=== PATIENT | male | born 1945 | race Caucasian/White ===

== ENCOUNTER 2019-04-17 07:24 | Inpatient (IN) | payer MEDICARE, OTHER ==
[~2019-04-17] VITALS: Ht 167.6 cm; Wt 90.0 kg
--- NOTE | 2019-04-17 07:36 | NUR ---
PT WITH C/O R SIDED NUMBNESS, IN ARM, STRENGTH EQUAL IN BOTH SIDES. ARM DOES SEEM TO DROP WITH OUT PT MEANING IT TOO. PT STATES HE WAS FALLING TO THE RIGHT SIDE AND LEANING ON THE WALL TO HOLD HIMSELF UP. PT ALSO STATES THAT HE HAS HAD SOME MEMORY ISSUES, SO DETAILS ARE HARD TO OBTAIN. PT STATES SYMPTOMS BEGAN APPROX 0600 THIS AM
--- NOTE | 2019-04-17 07:45 | NUR ---
ERMD IN TO EVAL PT, CODE NEURO CALLED
--- NOTE | 2019-04-17 07:46 | NUR ---
FSBG 149. PT TO CT AT THIS TIME
[2019-04-17 07:59] LABS: BASOPHILS # (AUTO) 0.07 x10^3/uL (0-0.1); BASOPHILS % (AUTO) 1 % (0-1); EOSINOPHILS # (AUTO) 0.02 x10^3/uL (0-0.4); EOSINOPHILS % (AUTO) 0 % (1-7); LYMPHOCYTES # (AUTO) 1.32 x10^3/uL (1-3.4); LYMPHOCYTES % (AUTO) 13 % (22-44); MD NO; MEAN CORPUSCULAR HEMOGLOBIN 32.5 pg (27.5-34.5); MEAN CORPUSCULAR HGB CONC 33.8 g/dL (33.2-36.2); MEAN CORPUSCULAR VOLUME 96.2 fL (81-97); MEAN PLATELET VOLUME 7.2 fL (7.4-10.4); MONOCYTES # (AUTO) 0.67 x10^3/uL (0.2-0.8); MONOCYTES % (AUTO) 7 % (2-9); NEUTROPHILS # (AUTO) 8.07 x10^3/uL (1.8-6.8); NEUTROPHILS % (AUTO) 80 % (42-75); PLATELET COUNT 223 x10^3/uL (130-400); RED BLOOD COUNT 4.96 x10^6/uL (4.38-5.82); RED CELL DISTRIBUTION WIDTH 13.3 % (9.4-14.8)
--- NOTE | 2019-04-17 08:05 | NUR ---
DR MARTINI IN TO EVAL PT
[2019-04-17 08:11] LABS: INTERNATIONAL NORMALIZED RATIO 1.01 (0.93-1.1); PROTHROMBIN TIME 10.7 Seconds (9.6-11.5)
[2019-04-17 08:12] LABS: ALANINE AMINOTRANSFERASE 44 U/L (12-78); ALBUMIN 3.8 g/dL (3.4-5.0); ANION GAP 7 mmol/L (5-15); CALCIUM 8.9 mg/dL (8.5-10.1); CHLORIDE 107 mmol/L (98-107)
[2019-04-17 08:14] LABS: ALKALINE PHOSPHATASE 44 U/L (45-117); BILIRUBIN,TOTAL 0.6 mg/dL (0.2-1.0); TOTAL PROTEIN 7.4 g/dL (6.4-8.2)
--- NOTE | 2019-04-17 08:34 | NUR ---
FAMILY NOW PRESENT, AND DAUGHTER OF PT. PT STILL IN MRI. TPA ORDERED, DR MARTINI DISCUSSING WITH FAMILY AT THIS TIME
--- NOTE | 2019-04-17 08:38 | NUR ---
Geni howard in [facility] - 04/17/19 at 0839 by DOMINIC TASK RN: PT MOVED TO WEIGHTE
--- NOTE | 2019-04-17 08:38 | NUR ---
TASK RN: PT MOVED TO WEIGHTE
--- NOTE | 2019-04-17 08:39 | NUR ---
TASK RN: PT RETURN TO ROOM. PT MOVED TO WEIGHTED [facility], RE-WEIGHED ON BED SCALE.
--- NOTE | 2019-04-17 08:40 | NUR ---
BEDSIDE REPORT FROM CM LEDEZMA, ASSUMED CARE OF PT AT THIS TIME. [facility] STROKE SCALE 3.
[2019-04-17] MEDS ORDERED: LABETALOL 5MG/ML, 20ML ONE (08:45)
--- NOTE | 2019-04-17 08:56 | NUR ---
LATE ENTRY: TASK RN, PER NEUROLOGIST OBTAIN MRI. RN ACCOMPANIED RN TO MRI, NEUROLOGIST TO MRI TO REVIEW SCAN, PER MD GIVE TPA AT THIS TIME. PT RETURNED TO TRAUMA 3, CONSENT OBTAINED AND TPA BOLUS GIVEN @0851, TPA INFUSION BEGAN @0851. [facility] STROKE SCALE 3, SEE CHART AND FLOWSHEET. FAMILY AT BEDSIDE, PT AND FAMILY UPDATED BY .
[2019-04-17] MEDS ORDERED: ALTEPLASE IV ONE (09:00)
[2019-04-17] MEDS ORDERED: LABETALOL 5MG/ML, 20ML IVPush ONE (09:00)
[2019-04-17] MEDS ORDERED: ALTEPLASE 8 MG in SYRINGE 1 EA IVPush ONE (09:00)
[2019-04-17] MEDS ORDERED: ALTEPLASE 1 MG/ML, 100ML ONE (09:01)
[2019-04-17] MEDS ORDERED: OMNIPAQUE 350 MG/ML, 100ML BOTTLE ONE (09:23)
[2019-04-17] MEDS ORDERED: LABETALOL 5MG/ML, 20ML IVPush STA (09:24)
--- NOTE | 2019-04-17 09:24 | NUR ---
ADDITIONAL DOSE OF LABETALOL GIVEN FOR BP 184/94
[2019-04-17] MEDS ORDERED: MULT-717 PO (09:28)
--- NOTE | 2019-04-17 09:47 | NUR ---
PT FAILED SWALLOW EVAL, PT GIVEN GLYCERIN SWABS TO MOISTEN MOUTH
--- NOTE | 2019-04-17 10:01 | NUR ---
TPA FINISHED INFUSING @2310
--- NOTE | 2019-04-17 10:08 | NUR ---
PT C/O BARRAZA AND RLE "CRAMPING" AND SORENESS, PTS AT BEDSIDE STATING PT WAS ON PLANE FROM ONE WEEK AGO. NOTIFIED AND US ORDERED.
--- NOTE | 2019-04-17 10:19 | NUR ---
PT C/O WORSENING HEADACHE NOW 05/23, PT STATED HE TOOK ALEVE AT 0200 AND HAS NOT HAD CAFFIENE AND USUALLY DRINKS A SIGNIFICANT AMOUNT OF CAFFIENE. MD NOTIFIED. CT HEAD ORDERED.
[2019-04-17] MEDS ORDERED: MORPHINE SULFATE 4 MG/ML, 1ML ONE (10:22)
[2019-04-17] MEDS ORDERED: MORPHINE SULFATE 4 MG/ML, 1ML IVPush PRN (10:30)
--- NOTE | 2019-04-17 10:50 | NUR ---
PT TO CT
--- NOTE | 2019-04-17 11:12 | NUR ---
US NOTIFIED PT RETURNED FROM CT AND IS READY FOR VDUPLEX
[2019-04-17] MEDS ORDERED: ONDANSETRON 2MG/ML, 2ML ONE ×3 (11:17→13:25)
--- NOTE | 2019-04-17 11:20 | NUR ---
PT HAD 1X EPISODE OF CLEAR/BROWN EMESIS, NOT RED OR BLOODY, MD NOTIFIED. PT MEDCIATED WITH ZOFRAN.
--- NOTE | 2019-04-17 11:27 | NUR ---
US AT BEDSIDE
[2019-04-17] MEDS ORDERED: ONDANSETRON 2MG/ML, 2ML IVPush ONE ×2 (11:30→14:00)
--- NOTE | 2019-04-17 11:31 | NUR ---
PT STATES NUMBNESS/TINGLING IS SIGNIFIGANTLY IMPROVING AND SWALLOWING FEELS BETTER.
[2019-04-17] MEDS ORDERED: BISACODYL 10 MG SUPP PR PRN (12:00)
[2019-04-17] MEDS ORDERED: HYDROcodone/APAP 5/325 TABLET PO PRN (12:00)
[2019-04-17] MEDS ORDERED: LIDODERM 5% PATCH TD PRN (12:00)
[2019-04-17] MEDS ORDERED: GABAPENTIN 300 MG CAPSULE PO PRN (12:00)
[2019-04-17] MEDS ORDERED: ONDANSETRON ODT 4 MG PO PRN (12:00)
[2019-04-17] MEDS ORDERED: POLYETHYLENE GLYCOL 17 GM PACKET PO PRN (12:00)
[2019-04-17] MEDS ORDERED: ENALAPRILAT 1.25 MG/ML, 2ML IV PRN (12:00)
[2019-04-17] MEDS ORDERED: DEXTROSE 4 GM TAB.CHEW PO PRN (12:00)
[2019-04-17] MEDS ORDERED: LABETALOL 5MG/ML, 20ML IV PRN (12:00)
[2019-04-17] MEDS ORDERED: GLUCAGON 1 MG IM PRN (12:00)
[2019-04-17] MEDS ORDERED: ACETAMINOPHEN 325 MG TABLET PO PRN (12:00)
[2019-04-17] MEDS ORDERED: DEXTROSE 50%, 50ML SYRINGE IVPush PRN (12:00)
[2019-04-17] MEDS ORDERED: ONDANSETRON 2MG/ML, 2ML IVPush PRN ×2 (12:00→18:00)
[2019-04-17] MEDS ORDERED: PANTOPRAZOLE 40 MG IV ONE (13:26)
--- NOTE | 2019-04-17 13:45 | NUR ---
LATE ENTRY FOR 1320 TASK RN: SBAR RPT INCLUDING NEURO EXAM DISCUSSED WITH PRIMARY RN. PT OOB TO [facility], +EMESIS WITH POSSIBLE HEMATEMESIS. DISCUSSED WITH DR TARIQ, SAMPLE TO BE SENT FOR OCCULT BLOOD TESTING. PT VOIDED W/O DIFFICULTY, CLEAR YELLOW URINE. PT MED WITH 4MG ZOFRAN AND 40MG PROTONIX. RTD TO [facility] WITH RN STANDBY. ALL MONITORS IN PLACE, PT GOWN CHANGED TO YELLOW AND YELLOW SOCKS. PILLOW AND WARM BLANKET PROVIDED. VSS NOTED, NO CHANGE IN NEURO ASSESSMENT. CALL LIGHT W/I REACH AND FAMILY AT BEDSIDE.
--- NOTE | 2019-04-17 13:54 | NUR ---
SAMPLE FOR GASTROCCULT WALKED TO LAB
[2019-04-17] MEDS ORDERED: PANTOPRAZOLE 40 MG IV IVPush ONE (14:00)
[2019-04-17 14:21] LABS: GASTRIC OCCULT BLD POSITIVE (NEGATIVE); GASTRIC PH 1 (1-7)
--- NOTE | 2019-04-17 14:38 | NUR ---
NOTIFIED OF +GASTRIC OCCULT BLOOD. ORDERS ENTERD FOR CBC, PT, PTT AND TYPE AND SCREEN.
--- NOTE | 2019-04-17 14:47 | NUR ---
LAB AT BEDSIDE
[2019-04-17 15:10] LABS: INTERNATIONAL NORMALIZED RATIO 1.07 (0.93-1.1); PROTHROMBIN TIME 11.4 Seconds (9.6-11.5)
[2019-04-17 15:21] LABS: BASOPHILS % (AUTO) 0 % (0-1); EOSINOPHILS # (AUTO) 0.02 x10^3/uL (0-0.4); EOSINOPHILS % (AUTO) 0 % (1-7); LYMPHOCYTES % (AUTO) 6 % (22-44); MD NO; MEAN CORPUSCULAR HEMOGLOBIN 32.4 pg (27.5-34.5); MEAN CORPUSCULAR HGB CONC 34.2 g/dL (33.2-36.2); MEAN CORPUSCULAR VOLUME 94.9 fL (81-97); MEAN PLATELET VOLUME 7.6 fL (7.4-10.4); MONOCYTES # (AUTO) 0.49 x10^3/uL (0.2-0.8); MONOCYTES % (AUTO) 4 % (2-9); NEUTROPHILS # (AUTO) 9.86 x10^3/uL (1.8-6.8); NEUTROPHILS % (AUTO) 89 % (42-75); PLATELET COUNT 234 x10^3/uL (130-400); RED BLOOD COUNT 4.85 x10^6/uL (4.38-5.82); RED CELL DISTRIBUTION WIDTH 13.9 % (9.4-14.8)
--- NOTE | 2019-04-17 15:35 | NUR ---
US AT BEDSIDE FOR CAROTID US
--- NOTE | 2019-04-17 15:57 | NUR ---
PT RESTING IN GURNEY WITH FAMILY AT BEDSIDE, STATES HE FEELS DIZZY, WEAK AND TIRED. REPEAT HBG SHOWS NO CHANGE. MD AWARE. WILL CONTINUE TO MONITOR. AWAITING BED ASSIGNMENT.
--- NOTE | 2019-04-17 16:53 | NUR ---
REPORT TO DYANA RN, PT TRANSPORTED TO ICU 6 ON MONITOR WITH TECH.
--- NOTE | 2019-04-17 17:00 | NUR ---
PT TRANSPORTED TO ICU 6, [facility] DONE WITH DYANA RN AT BEDSIDE, [facility] NEGATIVE.
[2019-04-17] MEDS: PANTOPRAZOLE 40 MG IV IVPush SCH (18:17)
[2019-04-17] MEDS: SODIUM CHLORIDE 0.9% 1,000 ML IV SCH (18:17)
[2019-04-17] MEDS: ATORVASTATIN 80 MG TABLET PO SCH (20:07)
[2019-04-17] MEDS: INSULIN LISPRO 100 UNITS/ML, PEN SQ-INSULIN SCH (20:11)
[2019-04-17] MEDS ORDERED: SODIUM CHLORIDE FLUSH 10ML SYR IVF SCH (21:00)
[2019-04-18 04:47] LABS: BASOPHILS # (AUTO) 0.03 x10^3/uL (0-0.1); BASOPHILS % (AUTO) 0 % (0-1); EOSINOPHILS % (AUTO) 0 % (1-7); LYMPHOCYTES # (AUTO) 0.93 x10^3/uL (1-3.4); LYMPHOCYTES % (AUTO) 10 % (22-44); MD NO; MEAN CORPUSCULAR HEMOGLOBIN 32.5 pg (27.5-34.5); MEAN CORPUSCULAR VOLUME 95.7 fL (81-97); MEAN PLATELET VOLUME 7.4 fL (7.4-10.4); MONOCYTES # (AUTO) 0.74 x10^3/uL (0.2-0.8); MONOCYTES % (AUTO) 8 % (2-9); NEUTROPHILS # (AUTO) 8.06 x10^3/uL (1.8-6.8); NEUTROPHILS % (AUTO) 83 % (42-75); PLATELET COUNT 213 x10^3/uL (130-400); RED BLOOD COUNT 4.53 x10^6/uL (4.38-5.82); RED CELL DISTRIBUTION WIDTH 14.1 % (9.4-14.8)
[2019-04-18 04:54] LABS: ALANINE AMINOTRANSFERASE 39 U/L (12-78); ALBUMIN 3.3 g/dL (3.4-5.0); ANION GAP 7 mmol/L (5-15); CALCIUM 8.5 mg/dL (8.5-10.1); CHLORIDE 106 mmol/L (98-107); CREATININE 1.05 mg/dL (0.7-1.3)
[2019-04-18 04:57] LABS: ALKALINE PHOSPHATASE 41 U/L (45-117); BILIRUBIN,TOTAL 0.5 mg/dL (0.2-1.0); CHOL/HDL RATIO 3.2; CHOLESTEROL, TOTAL 210 mg/dL (140-239); HDL CHOL % 31 % (26-37); HDL CHOLESTEROL (DIRECT) 66 mg/dL (40-60); LDL CHOLESTEROL,CALCULATED 105 mg/dL (54-169); LDL/HDL RATIO 1.6 (0.5-3.0); TOTAL PROTEIN 6.7 g/dL (6.4-8.2); TRIGLYCERIDES 197 mg/dL (50-200); VLDL CHOLESTEROL 39 mg/dL (0-25)
[2019-04-18] MEDS: PANTOPRAZOLE 40 MG IV IVPush SCH ×2 (05:59→18:00)
[2019-04-18] MEDS: INSULIN LISPRO 100 UNITS/ML, PEN SQ-INSULIN SCH (07:00)
[2019-04-18] MEDS ORDERED: LABETALOL 5MG/ML, 20ML IV PRN (12:00)
[2019-04-18] MEDS: SODIUM CHLORIDE 0.9% 1,000 ML IV SCH (13:00)
--- NOTE | 2019-04-18 15:21 | NUR ---
REGULAR/THINS -aviod the use of straws -up for all meals Addendum: 04/18/19 at [address] Amended: Links added.
[2019-04-18 18:37] VITALS: BP 174/79
[2019-04-18 18:56] VITALS: BP 160/75
[2019-04-18] MEDS: ATORVASTATIN 80 MG TABLET PO SCH (20:59)
[2019-04-18] MEDS: AMLODIPINE 5 MG TABLET PO SCH (20:59)
[2019-04-18 23:12] VITALS: BP 153/68
[2019-04-19 03:30] VITALS: BP 160/77
[2019-04-19] MEDS: PANTOPRAZOLE 40 MG IV IVPush SCH ×2 (06:03→18:32)
[2019-04-19 06:25] LABS: BASOPHILS # (AUTO) 0.08 x10^3/uL (0-0.1); BASOPHILS % (AUTO) 1 % (0-1); EOSINOPHILS # (AUTO) 0.03 x10^3/uL (0-0.4); EOSINOPHILS % (AUTO) 0 % (1-7); LYMPHOCYTES # (AUTO) 1.29 x10^3/uL (1-3.4); LYMPHOCYTES % (AUTO) 14 % (22-44); MD NO; MEAN CORPUSCULAR HEMOGLOBIN 32.3 pg (27.5-34.5); MEAN CORPUSCULAR HGB CONC 33.7 g/dL (33.2-36.2); MEAN CORPUSCULAR VOLUME 95.9 fL (81-97); MEAN PLATELET VOLUME 7.2 fL (7.4-10.4); MONOCYTES # (AUTO) 0.93 x10^3/uL (0.2-0.8); MONOCYTES % (AUTO) 10 % (2-9); NEUTROPHILS # (AUTO) 6.83 x10^3/uL (1.8-6.8); NEUTROPHILS % (AUTO) 75 % (42-75); PLATELET COUNT 205 x10^3/uL (130-400); RED BLOOD COUNT 4.64 x10^6/uL (4.38-5.82); RED CELL DISTRIBUTION WIDTH 13.6 % (9.4-14.8)
[2019-04-19 06:36] LABS: CALCIUM 8.8 mg/dL (8.5-10.1); CHLORIDE 105 mmol/L (98-107)
[2019-04-19 06:42] LABS: ANION GAP 6 mmol/L (5-15); CREATININE 0.82 mg/dL (0.7-1.3)
[2019-04-19 07:49] VITALS: BP 149/78
[2019-04-19] MEDS: AMLODIPINE 5 MG TABLET PO SCH (10:03)
[2019-04-19 12:10] VITALS: BP 183/84
[2019-04-19] MEDS: ENALAPRILAT 1.25 MG/ML, 2ML IV PRN ×2 (12:44→20:33)
[2019-04-19 14:46] VITALS: BP 153/74
[2019-04-19 16:20] VITALS: BP 162/73
[2019-04-19 20:05] VITALS: BP 171/71
[2019-04-19] MEDS: MECLIZINE 25 MG TABLET PO PRN (20:08)
[2019-04-19] MEDS: ATORVASTATIN 80 MG TABLET PO SCH (20:08)
[2019-04-19] MEDS: ENOXAPARIN 40 MG/0.4 ML SQ SCH (20:08)
[2019-04-19] MEDS: SENNA/DOCUSATE TABLET PO PRN (20:38)
[2019-04-20] VITALS: BP 142/77
[2019-04-20 04:06] VITALS: BP 154/76
[2019-04-20] MEDS: ASPIRIN 81 MG TABLET EC PO SCH (04:06)
[2019-04-20 07:24] LABS: BASOPHILS # (AUTO) 0.09 x10^3/uL (0-0.1); BASOPHILS % (AUTO) 1 % (0-1); EOSINOPHILS # (AUTO) 0.04 x10^3/uL (0-0.4); EOSINOPHILS % (AUTO) 0 % (1-7); LYMPHOCYTES # (AUTO) 1.44 x10^3/uL (1-3.4); LYMPHOCYTES % (AUTO) 15 % (22-44); MD NO; MEAN CORPUSCULAR HEMOGLOBIN 32.8 pg (27.5-34.5); MEAN CORPUSCULAR HGB CONC 34.3 g/dL (33.2-36.2); MEAN CORPUSCULAR VOLUME 95.4 fL (81-97); MEAN PLATELET VOLUME 6.9 fL (7.4-10.4); MONOCYTES # (AUTO) 0.94 x10^3/uL (0.2-0.8); MONOCYTES % (AUTO) 10 % (2-9); NEUTROPHILS # (AUTO) 7.09 x10^3/uL (1.8-6.8); NEUTROPHILS % (AUTO) 74 % (42-75); PLATELET COUNT 235 x10^3/uL (130-400); RED BLOOD COUNT 4.96 x10^6/uL (4.38-5.82); RED CELL DISTRIBUTION WIDTH 13.3 % (9.4-14.8)
[2019-04-20 07:33] LABS: ANION GAP 8 mmol/L (5-15); CALCIUM 8.9 mg/dL (8.5-10.1); CHLORIDE 104 mmol/L (98-107); CREATININE 0.89 mg/dL (0.7-1.3)
[2019-04-20 07:38] VITALS: BP 144/88
[2019-04-20] MEDS: AMLODIPINE 5 MG TABLET PO SCH (09:15)
[2019-04-20] MEDS: MECLIZINE 25 MG TABLET PO PRN (09:16)
[2019-04-20 12:55] VITALS: BP 156/88
[2019-04-20] MEDS: TAMSULOSIN 0.4 MG CAP.ER.24H PO SCH (15:40)
[2019-04-20 17:52] VITALS: BP 137/87
[2019-04-20 18:00] LABS: MICROSCOPIC NOT IND
[2019-04-20 18:10] LABS: CULTURE INDICATED? NO
[2019-04-20 20:14] VITALS: BP 146/79
[2019-04-20] MEDS: SENNA/DOCUSATE TABLET PO PRN (20:18)
[2019-04-20] MEDS: ENOXAPARIN 40 MG/0.4 ML SQ SCH (20:18)
[2019-04-20] MEDS: ATORVASTATIN 80 MG TABLET PO SCH (20:18)
[2019-04-21 00:03] VITALS: BP 148/88
[2019-04-21 04:18] VITALS: BP 134/78
[2019-04-21] MEDS: ASPIRIN 81 MG TABLET EC PO SCH (04:22)
[2019-04-21 07:06] LABS: BASOPHILS # (AUTO) 0.02 x10^3/uL (0-0.1); BASOPHILS % (AUTO) 0 % (0-1); EOSINOPHILS # (AUTO) 0.08 x10^3/uL (0-0.4); EOSINOPHILS % (AUTO) 1 % (1-7); LYMPHOCYTES # (AUTO) 1.47 x10^3/uL (1-3.4); LYMPHOCYTES % (AUTO) 15 % (22-44); MD NO; MEAN CORPUSCULAR HEMOGLOBIN 32.3 pg (27.5-34.5); MEAN CORPUSCULAR HGB CONC 33.5 g/dL (33.2-36.2); MEAN CORPUSCULAR VOLUME 96.5 fL (81-97); MEAN PLATELET VOLUME 7.2 fL (7.4-10.4); MONOCYTES # (AUTO) 0.92 x10^3/uL (0.2-0.8); MONOCYTES % (AUTO) 9 % (2-9); NEUTROPHILS # (AUTO) 7.65 x10^3/uL (1.8-6.8); NEUTROPHILS % (AUTO) 76 % (42-75); PLATELET COUNT 231 x10^3/uL (130-400); RED BLOOD COUNT 4.99 x10^6/uL (4.38-5.82); RED CELL DISTRIBUTION WIDTH 13.6 % (9.4-14.8)
[2019-04-21 07:12] LABS: ANION GAP 8 mmol/L (5-15); CALCIUM 8.9 mg/dL (8.5-10.1); CHLORIDE 104 mmol/L (98-107); CREATININE 0.93 mg/dL (0.7-1.3)
[2019-04-21 07:37] VITALS: BP 136/91
[2019-04-21] MEDS: TAMSULOSIN 0.4 MG CAP.ER.24H PO SCH (09:24)
[2019-04-21] MEDS: AMLODIPINE 5 MG TABLET PO SCH (09:24)
[2019-04-21 12:00] VITALS: BP 147/78
[2019-04-21 17:39] VITALS: BP 145/84
[2019-04-21] MEDS: SENNA/DOCUSATE TABLET PO PRN (17:46)
[2019-04-21] MEDS: ENOXAPARIN 40 MG/0.4 ML SQ SCH (20:20)
[2019-04-21] MEDS: ATORVASTATIN 80 MG TABLET PO SCH (20:20)
[2019-04-21 20:56] VITALS: BP 131/76
[2019-04-22 00:05] VITALS: BP 149/88
[2019-04-22 04:09] VITALS: BP 153/81
[2019-04-22] MEDS: ASPIRIN 81 MG TABLET EC PO SCH (05:59)
[2019-04-22 06:17] LABS: ALANINE AMINOTRANSFERASE 40 U/L (12-78); ALBUMIN 3.2 g/dL (3.4-5.0); ANION GAP 10 mmol/L (5-15); BASOPHILS # (AUTO) 0.02 x10^3/uL (0-0.1); BASOPHILS % (AUTO) 0 % (0-1); CALCIUM 8.8 mg/dL (8.5-10.1); CHLORIDE 105 mmol/L (98-107); EOSINOPHILS # (AUTO) 0.18 x10^3/uL (0-0.4); EOSINOPHILS % (AUTO) 2 % (1-7); LYMPHOCYTES # (AUTO) 1.56 x10^3/uL (1-3.4); LYMPHOCYTES % (AUTO) 15 % (22-44); MD NO; MEAN CORPUSCULAR HEMOGLOBIN 32.3 pg (27.5-34.5); MEAN PLATELET VOLUME 7.7 fL (7.4-10.4); MONOCYTES # (AUTO) 0.97 x10^3/uL (0.2-0.8); MONOCYTES % (AUTO) 9 % (2-9); NEUTROPHILS % (AUTO) 74 % (42-75); PLATELET COUNT 221 x10^3/uL (130-400); RED BLOOD COUNT 4.85 x10^6/uL (4.38-5.82); RED CELL DISTRIBUTION WIDTH 13.1 % (9.4-14.8)
[2019-04-22 06:19] LABS: ALKALINE PHOSPHATASE 46 U/L (45-117); BILIRUBIN,TOTAL 0.6 mg/dL (0.2-1.0); CREATININE 0.91 mg/dL (0.7-1.3); TOTAL PROTEIN 6.8 g/dL (6.4-8.2)
[2019-04-22 06:50] VITALS: BP 152/70
[2019-04-22] MEDS: TAMSULOSIN 0.4 MG CAP.ER.24H PO SCH (08:33)
[2019-04-22] MEDS: AMLODIPINE 5 MG TABLET PO SCH (08:34)
[2019-04-22] MEDS ORDERED: FLU VACC QS2019-20 36MOS UP/PF 0.5 ML IM-VACC ONE (09:00)
[2019-04-22 13:28] VITALS: BP 145/87
[2019-04-22] MEDS ORDERED: MECL-101 PO (13:54)
[2019-04-22] MEDS ORDERED: TAMS-11 PO (13:54)
[2019-04-22] MEDS ORDERED: ENOX40SY4 SQ (13:54)
[2019-04-22] MEDS ORDERED: ATOR-2 PO (13:54)
[2019-04-22] MEDS ORDERED: ASPI81TA45 PO (13:54)
[2019-04-22] MEDS ORDERED: AMLO-150 PO (13:54)
[2019-04-22] MEDS ORDERED: AMLODIPINE 5 MG TABLET PO SCH (21:00)
== END 2019-04-22 15:16 | DRG 61 ==
LOC: ED 09:10 → EDIP 09:43 → ICU 17:05 → 4EST 04-18 18:37 → 4WST 04-18 21:11
PROVIDERS: ADMIT Internal Medicine; ATTEND Internal Medicine
DX: I63.9 Cerebral infarction, unspecified (principal); G93.6 Cerebral edema; G47.33 Obstructive sleep apnea (adult) (pediatric); I10 Essential (primary) hypertension; I34.0 Nonrheumatic mitral (valve) insufficiency; I65.22 Occlusion and stenosis of left carotid artery; M32.9 Systemic lupus erythematosus, unspecified; R13.10 Dysphagia, unspecified
CPT/HCPCS: 36415; 70450; 70496; 70498; 70551; 71046; 74230; 80048; 80053; 80061; 81003; 82271; 82330; 82803; 82947; 82962; 83735; 84100; 84132; 84295; 85014; 85018; 85025; 85610; 85730; 86850; 86900; 87081; 90686; 93005; 93306; 93880; 96374; 96375; 96376; G0378; J1650; J2405; J2997; Q9967; 92523-GN; C9113; J2270; J7030